=== PATIENT | male | born 1995 | race Caucasian/White ===

== ENCOUNTER 2019-06-05 01:00 | Emergency (ER) | payer MEDICAID ==
[~2019-06-05] VITALS: Ht 172.7 cm; Wt 76.4 kg
[2019-06-05] MEDS ORDERED: PERTUSS(ACELL),DIPH,TET VAC/PF 0.5 ML VIAL IM ONE (01:45)
[2019-06-05] MEDS ORDERED: IBUPROFEN 800 MG TABLET PO ONE (01:45)
[2019-06-05] MEDS ORDERED: LIDOCAINE 1% 10 ML VIAL INJ ONE (02:15)
[2019-06-05] MEDS ORDERED: BACITRACIN 0.9 GM PACKET OINTMENT TP ONE (02:47)
[2019-06-05 03:28] VITALS: BP 124/72
== END 2019-06-05 03:37 | disposition home or self-care (01) ==
LOC: EMS 01:00
DX: S61.411A Laceration without foreign body of right hand, initial encounter (principal); F17.210 Nicotine dependence, cigarettes, uncomplicated; F12.90 Cannabis use, unspecified, uncomplicated; W45.8XXA Other foreign body or object entering through skin, initial encounter; Y93.89 Activity, other specified; Y92.89 Other specified places as the place of occurrence of the external cause; Y99.8 Other external cause status
CPT/HCPCS: 12002; 90471; 90715

== ENCOUNTER 2021-09-04 02:07 | Inpatient (IN) | payer MEDICAID ==
[~2021-09-04] VITALS: Ht 172.7 cm; Wt 93.4 kg
[2021-09-04 02:51] LABS: BASOPHILS % (AUTO) 0.5 % (0.0-2.0); EOSINOPHILS % (AUTO) 3.5 % (1.0-6.0); HEMATOCRIT 46.7 % (41-53); HEMOGLOBIN 16.7 g/dL (13.5-17.5); LYMPHOCYTES # (AUTO) 2.3 K/uL (1.0-4.8); LYMPHOCYTES % (AUTO) 33.8 % (22.0-44.0); MEAN CORPUSCULAR HGB CONC 35.7 G/dL (31.0-37.0); MEAN CORPUSCULAR VOLUME 84 fL (80-100); MONOCYTES # (AUTO) 0.4 K/uL (0.1-1.0); MONOCYTES % (AUTO) 5.5 % (2.0-9.0); NEUTROPHILS # (AUTO) 3.9 K/uL (1.8-7.7); NEUTROPHILS % (AUTO) 56.7 % (40.0-70.0); PLATELET COUNT (AUTO) 265 K/uL (150-450); RED BLOOD CELL COUNT(AUTO) 5.56 MIL/uL (4.50-5.90); RED CELL DISTRIBUTION WIDTH 13.2 % (11.5-14.5)
[2021-09-04 02:59] LABS: ANION GAP 11 mmol/L (8-16); CALCIUM, TOTAL 8.8 mg/dL (8.8-10.5); CARBON DIOXIDE 23 mmol/L (22-29); CHLORIDE 103 mmol/L (98-107); GLUCOSE,RANDOM 112 mg/dL (70-110); POTASSIUM 3.8 mmol/L (3.5-5.1); SODIUM SERUM 137 mmol/L (136-145); UREA NITROGEN, BLOOD 9 mg/dL (7-18)
[2021-09-04 03:00] LABS: GLOMERULAR FILTR. RATE CALC > 60 mL/min (>60)
[2021-09-04 03:05] LABS: ALANINE AMINOTRANSFERASE 67 U/L (12-78); ALBUMIN 4.5 g/dL (3.4-5.0); ALKALINE PHOSPHATASE 108 U/L (46-116); ASPARTATE AMINOTRANSFERASE 28 U/L (15-37); BILIRUBIN,TOTAL 0.3 mg/dL (0.1-1.0); TOTAL PROTEIN, SERUM 8.5 g/dL (6.4-8.2)
[2021-09-04] MEDS ORDERED: HALOPERIDOL 5 MG TABLET PO PRN (04:15)
[2021-09-04] MEDS ORDERED: LORazepam 2 MG TABLET PO PRN (04:15)
[2021-09-04 04:21] LABS: COVID AG,FIA SOURCE NASAL SWAB
[2021-09-04 09:38] VITALS: BP 125/86
[2021-09-04 20:16] VITALS: BP 118/70
[2021-09-04] MEDS: ZOLPIDEM TARTRATE 10 MG TABLET PO PRN (22:01)
[2021-09-05 07:01] LABS: APPEARANCE,URINE TURBID (CLEAR); BILIRUBIN,URINE NEGATIVE (NEGATIVE); GLUCOSE, URINE (UA) NEGATIVE (NEGATIVE); LEUKOCYTE ESTERASE ,URINE NEGATIVE (NEGATIVE); NITRATE,URINE NEGATIVE (NEGATIVE); OCCULT BLOOD,URINE NEGATIVE (NEGATIVE); PROTEIN,URINE 30-70 mg/dL (NEGATIVE); SPECIFIC GRAVITIY, URINE 1.023 (1.003-1.030); UROBILINOGEN,URINE <=1.0 mg/dL (<=1.0)
[2021-09-05 07:14] LABS: AMORPHOUS SEDIMENT,UR Many /LPF (None Seen); AMPHET/METH SCREEN,URINE NEGATIVE (NEGATIVE); BACTERIA,URINE None Seen /HPF (None Seen); BARBITURATE SCREEN, URINE NEGATIVE (NEGATIVE); BENZODIAZEPINES SCREEN,URINE NEGATIVE (NEGATIVE); CANNABINOID SCREEN,URINE POSITIVE (NEGATIVE); COCAINE SCREEN,URINE NEGATIVE (NEGATIVE); METHADONE SCREEN, URINE NEGATIVE (NEGATIVE); OPIATE SCREEN,URINE NEGATIVE (NEGATIVE); RBC,URINE None Seen /HPF (0-2); WBC,URINE None Seen /HPF (0-5)
[2021-09-05 07:25] LABS: PHENCYCLIDINE SCREEN,URINE NEGATIVE (NEGATIVE)
[2021-09-05] MEDS: DULoxetine HCL 60 MG CAPSULE PO SCH (08:05)
[2021-09-05 08:15] VITALS: BP 130/80
[2021-09-05] MEDS ORDERED: ONDANSETRON HCL 4 MG TABLET PO PRN (13:30)
[2021-09-05 20:07] VITALS: BP 128/78
[2021-09-05] MEDS: ZOLPIDEM TARTRATE 10 MG TABLET PO PRN (21:51)
[2021-09-06 07:44] LABS: HEMOGLOBIN A1C 5.1 % (3.8-5.6)
[2021-09-06 08:01] LABS: CHOL/HDL RATIO 3.6 (4.2-7.3); FREE T4 (FREE THYROXINE) 1.01 ng/dL (0.76-1.46); THYROID STIMULATING HORMONE 1.58 uIU/mL (0.36-3.74)
[2021-09-06] MEDS: FOLIC ACID 1 MG TABLET PO SCH (08:09)
[2021-09-06] MEDS: DULoxetine HCL 60 MG CAPSULE PO SCH (08:09)
[2021-09-06] MEDS: THIAMINE 100 MG TABLET PO SCH (08:09)
[2021-09-06 08:47] VITALS: BP 123/74
[2021-09-06 20:47] VITALS: BP 128/75
[2021-09-06] MEDS: ZOLPIDEM TARTRATE 10 MG TABLET PO PRN (22:00)
[2021-09-07 08:47] VITALS: BP 116/75
[2021-09-07] MEDS: DULoxetine HCL 60 MG CAPSULE PO SCH (08:55)
[2021-09-07] MEDS: THIAMINE 100 MG TABLET PO SCH (08:55)
[2021-09-07] MEDS: FOLIC ACID 1 MG TABLET PO SCH (08:55)
[2021-09-07] MEDS ORDERED: DULO-113 PO (11:23)
== END 2021-09-07 15:30 | disposition home or self-care (01) | DRG 754 ==
LOC: EMS 02:07 → B2S 05:11
PROVIDERS: ADMIT Psychiatry & Neurology Psychiatry; ATTEND Psychiatry & Neurology Psychiatry
DX: F32.9 Major depressive disorder, single episode, unspecified (principal); F25.9 Schizoaffective disorder, unspecified; R45.851 Suicidal ideations; F41.9 Anxiety disorder, unspecified; G47.00 Insomnia, unspecified; Z20.822 Contact with and (suspected) exposure to COVID-19; Z71.6 Tobacco abuse counseling; Z72.0 Tobacco use; Z82.49 Family history of ischemic heart disease and other diseases of the circulatory system; Z82.5 Family history of asthma and other chronic lower respiratory diseases; Z83.3 Family history of diabetes mellitus; Z72.89 Other problems related to lifestyle
CPT/HCPCS: 80053; 80061; 81001; 83036; 84439; 84443; 85025; 99285; G0480; Q0162

== ENCOUNTER 2021-10-10 19:54 | Emergency (ER) | payer MEDICAID ==
[~2021-10-10] VITALS: Ht 172.7 cm; Wt 92.7 kg
[~2021-10-10 19:54] MED LIST: DULO-113 PO
[2021-10-10 20:20] VITALS: BP 132/80
[2021-10-10 21:35] LABS: COVID AG,FIA SOURCE NASAL SWAB
[2021-10-10 21:43] LABS: BASOPHILS % (AUTO) 0.3 % (0.0-2.0); EOSINOPHILS % (AUTO) 0.4 % (1.0-6.0); HEMATOCRIT 46.6 % (41-53); HEMOGLOBIN 16.6 g/dL (13.5-17.5); LYMPHOCYTES # (AUTO) 1.5 K/uL (1.0-4.8); LYMPHOCYTES % (AUTO) 20.5 % (22.0-44.0); MEAN CORPUSCULAR HEMOGLOBIN 29.4 pg (26.0-34.0); MEAN CORPUSCULAR HGB CONC 35.7 G/dL (31.0-37.0); MEAN CORPUSCULAR VOLUME 83 fL (80-100); MONOCYTES # (AUTO) 0.8 K/uL (0.1-1.0); MONOCYTES % (AUTO) 10.9 % (2.0-9.0); NEUTROPHILS % (AUTO) 67.9 % (40.0-70.0); PLATELET COUNT (AUTO) 240 K/uL (150-450); RED BLOOD CELL COUNT(AUTO) 5.65 MIL/uL (4.50-5.90); RED CELL DISTRIBUTION WIDTH 12.6 % (11.5-14.5)
[2021-10-10 22:01] LABS: ANION GAP 9 mmol/L (8-16); CALCIUM, TOTAL 9.2 mg/dL (8.8-10.5); CARBON DIOXIDE 26 mmol/L (22-29); CHLORIDE 98 mmol/L (98-107); CREATININE 1.02 mg/dL (0.60-1.30); GLUCOSE,RANDOM 108 mg/dL (70-110); POTASSIUM 3.5 mmol/L (3.5-5.1); SODIUM SERUM 133 mmol/L (136-145); UREA NITROGEN, BLOOD 7 mg/dL (7-18)
[2021-10-10 22:03] LABS: GLOMERULAR FILTR. RATE CALC > 60 mL/min (>60)
[2021-10-10 22:07] LABS: ALANINE AMINOTRANSFERASE 31 U/L (12-78); ALBUMIN 4.3 g/dL (3.4-5.0); ALKALINE PHOSPHATASE 103 U/L (46-116); ASPARTATE AMINOTRANSFERASE 18 U/L (15-37); BILIRUBIN,TOTAL 0.5 mg/dL (0.1-1.0); LIPASE 294 U/L (73-393); TOTAL PROTEIN, SERUM 8.4 g/dL (6.4-8.2)
[2021-10-10] MEDS ORDERED: SODIUM CHLORIDE 0.9% 1,000 ML IV ONE ×2 (22:30→23:00)
[2021-10-10 22:48] LABS: APPEARANCE,URINE CLEAR (CLEAR); BILIRUBIN,URINE NEGATIVE (NEGATIVE); GLUCOSE, URINE (UA) NEGATIVE (NEGATIVE); LEUKOCYTE ESTERASE ,URINE NEGATIVE (NEGATIVE); NITRATE,URINE NEGATIVE (NEGATIVE); OCCULT BLOOD,URINE NEGATIVE (NEGATIVE); PROTEIN,URINE 30-70 mg/dL (NEGATIVE); SPECIFIC GRAVITIY, URINE 1.037 (1.003-1.030); UROBILINOGEN,URINE <=1.0 mg/dL (<=1.0)
[2021-10-10] MEDS ORDERED: ONDANSETRON HCL 4 MG/2 ML VIAL IVP ONE (23:00)
[2021-10-10] MEDS ORDERED: PB/HYOSCY/ATR/SCOP/LIDO/MAALOX 55 ML BOTTLE PO ONE (23:00)
[2021-10-10] MEDS ORDERED: ACETAMINOPHEN 500 MG TABLET PO ONE (23:00)
== END 2021-10-11 01:00 | disposition home or self-care (01) ==
LOC: EMS 20:11
DX: K52.9 Noninfective gastroenteritis and colitis, unspecified (principal); F11.90 Opioid use, unspecified, uncomplicated; F12.90 Cannabis use, unspecified, uncomplicated; F14.90 Cocaine use, unspecified, uncomplicated; F17.210 Nicotine dependence, cigarettes, uncomplicated; Z79.899 Other long term (current) drug therapy; Z20.822 Contact with and (suspected) exposure to COVID-19
CPT/HCPCS: 99283; 96374; 96361; 87426; 80053; 81003; 83690; 85025; 36415; J2405; J7030

== ENCOUNTER 2023-08-17 03:06 | Emergency (ER) | payer MEDICAID, OTHER ==
[~2023-08-17] VITALS: Ht 172.7 cm; Wt 86.0 kg
[2023-08-17 03:13] VITALS: TEMP 97.7
[2023-08-17 03:43] LABS: BASOPHILS % (AUTO) 0.2 % (0.0-2.0); EOSINOPHILS % (AUTO) 1.9 % (1.0-6.0); HEMATOCRIT 50.5 % (41-53); HEMOGLOBIN 17.6 g/dL (13.5-17.5); LYMPHOCYTES # (AUTO) 0.9 K/uL (1.0-4.8); LYMPHOCYTES % (AUTO) 5.8 % (22.0-44.0); MEAN CORPUSCULAR HEMOGLOBIN 29.8 pg (26.0-34.0); MEAN CORPUSCULAR VOLUME 85 fL (80-100); MONOCYTES # (AUTO) 1.1 K/uL (0.1-1.0); MONOCYTES % (AUTO) 6.6 % (2.0-9.0); NEUTROPHILS # (AUTO) 13.8 K/uL (1.8-7.7); PLATELET COUNT (AUTO) 267 K/uL (150-450); RED BLOOD CELL COUNT(AUTO) 5.93 MIL/uL (4.50-5.90); RED CELL DISTRIBUTION WIDTH 13.7 % (11.5-14.5); WHITE BLOOD COUNT (AUTO) 16.2 K/uL (4.5-11.0)
[2023-08-17 03:44] LABS: NEUTROPHILS % (AUTO) 85.5 % (40.0-70.0)
[2023-08-17 03:52] LABS: ANION GAP 10 mmol/L (8-16); CARBON DIOXIDE 28 mmol/L (22-29); CHLORIDE 101 mmol/L (98-107); CREATININE 0.87 mg/dL (0.60-1.30); GLOMERULAR FILTR. RATE CALC > 60 mL/min (>60); GLUCOSE,RANDOM 117 mg/dL (70-110); SODIUM SERUM 139 mmol/L (136-145); UREA NITROGEN, BLOOD 14 mg/dL (7-18)
[2023-08-17 03:58] LABS: ALANINE AMINOTRANSFERASE 31 U/L (12-78); ALBUMIN 4.5 g/dL (3.4-5.0); ALKALINE PHOSPHATASE 105 U/L (46-116); ASPARTATE AMINOTRANSFERASE 20 U/L (15-37); BILIRUBIN,TOTAL 0.7 mg/dL (0.1-1.0); LIPASE 31 U/L (16-77); TOTAL PROTEIN, SERUM 8.5 g/dL (6.4-8.2)
[2023-08-17] MEDS: SODIUM CHLORIDE 0.9% 1,000 ML IV ONE (04:06)
[2023-08-17] MEDS: ONDANSETRON HCL 4 MG/2 ML VIAL IVP ONE (04:22)
[2023-08-17] MEDS: KETOROLAC TROMETHAMINE 30 MG/ML VIAL IVP ONE (04:23)
[2023-08-17 07:15] VITALS: BP 108/52; PULSE 74; RESP 18
[2023-08-17 07:40] LABS: APPEARANCE,URINE CLEAR (CLEAR); BILIRUBIN,URINE NEGATIVE (NEGATIVE); COLOR,URINE LIGHT YELLOW (YELLOW); GLUCOSE, URINE (UA) NEGATIVE (NEGATIVE); LEUKOCYTE ESTERASE ,URINE NEGATIVE (NEGATIVE); NITRATE,URINE NEGATIVE (NEGATIVE); OCCULT BLOOD,URINE NEGATIVE (NEGATIVE); PH,URINE 6.5 (5.0-8.0); PROTEIN,URINE 30-70 mg/dL (NEGATIVE); SPECIFIC GRAVITIY, URINE 1.026 (1.003-1.030); UROBILINOGEN,URINE <=1.0 mg/dL (<=1.0)
== END 2023-08-17 10:02 | disposition home or self-care (01) ==
LOC: EMS 03:06
DX: K52.9 Noninfective gastroenteritis and colitis, unspecified (principal); R10.84 Generalized abdominal pain; R11.2 Nausea with vomiting, unspecified; F17.210 Nicotine dependence, cigarettes, uncomplicated; F12.90 Cannabis use, unspecified, uncomplicated
CPT/HCPCS: 99285; 74176; 96374; 96361; 96375; 80053; 81003; 83690; 85025; 36415; J1885; J2405; J7030